=== PATIENT | female | born 1950 | race Caucasian/White ===

== ENCOUNTER → 2017-10-18 | Outpatient (CLI) | payer OTHER ==
--- NOTE | 2017-12-14 05:57 | CPEKG ---
Heart Rate: 53 RR Interval: 1132 P-R Interval: 148 QRSD Interval: 72 QT Interval: 440 QTC Interval: 414 P [place]: 38 QRS [place]: 15 T Wave [place]: 41 EKG Severity - NORMAL ECG - EKG Impression: SINUS RHYTHM Electronically Signed For: Maycol Saeg 17-Nov-2017 13:15:05
== END ==
LOC: FPAT 14:13
PROVIDERS: ATTEND Neurological Surgery
DX: Z01.812 Encounter for preprocedural laboratory examination (principal); Z01.810 Encounter for preprocedural cardiovascular examination